=== PATIENT | male | born 1965 | race Caucasian/White ===

== ENCOUNTER 2018-08-22 15:18 | Emergency (ER) | payer SELFPAY ==
[2018-08-22 15:42] VITALS: BP 140/95; PULSE 99; RESP 24; TEMP 37.9; O2SAT 97; BMI 29.1
--- NOTE | 2018-08-22 16:39 | ED.NAVMDI ---
HPI - Nausea/Vomiting/Diarrhea General Chief complaint: Nausea/Vomiting/Diarrhea Stated complaint: vomiting and nausea past several days Time Seen by Provider: 08/22/18 16:24 Source: patient and family Mode of arrival: wheelchair Limitations: no limitations History of Present Illness HPI Narrative: Patient is a 52-year-old male with new diagnosis of metastatic melanoma. He is scheduled with [facility] to start treatment in his 3 days. he has been persistently vomiting and nauseated for the last 3 days. However he states he has been nauseated for weeks. He has Zofran and Compazine at home neither of which he says is working. At a different hospital he received Reglan IV which also did not help. He has significant decreased oral intake. He does live alone his sister is currently here to help him however she does not live with him constantly. Patient has no abdominal pain. Related Data Previous Rx's Medication Instructions Recorded promethazine 25 mg PO Q6H PRN #20 tab 08/22/18 Allergies Allergy/AdvReac Type Severity Reaction Status Date / Time No Known Drug Allergies Allergy Verified 08/22/18 15:46 Review of Systems Review of Systems ROS Unobtainable: All systems reviewed & are unremarkable except as noted in HPI and below Constitutional Denies chills, Denies fever(s), Denies lethargy and Denies weakness Eyes Denies change in vision, Denies eye discharge, Denies irritation and Denies loss of vision Cardiovascular Denies dyspnea and Denies dyspnea on exertion Respiratory Denies cough, Denies dyspnea, Denies dyspnea on exertion and Denies wheezing Gastrointestinal Gastrointestinal: Denies diarrhea, Reports nausea and Reports vomiting Genitourinary Denies hematuria, Denies flank pain, Denies urinary incontinence and Denies urinary urgency Musculoskeletal Denies back pain, Denies muscle weakness, Denies numbness and Denies tingling Integumentary/Breasts Denies pruritus, Denies erythema, Denies rash and Denies wounds Neurologic Denies loss of vision, Denies numbness, Denies tingling and Denies weakness Allergic/Immunologic Denies wheezing PFSH Medical History Metastatic melanoma (Acute) Social History Smoking Status: Never smoker Social History Smoking Status: Never smoker Exam Initial Vital Signs Initial Vital Signs: Vital Signs Temperature 100.2 F H 08/22/18 15:42 Pulse Rate 99 H 08/22/18 15:42 Respiratory Rate 24 08/22/18 15:42 Blood Pressure 140/95 H 08/22/18 15:42 Pulse Oximetry 97 08/22/18 15:42 GENERAL: weak male no acute distress HEENT: Head atraumatic,EOMI, pupils reactive, face symmetric, dry mucous membranes CARDIOVASCULAR: Regular rate and rhythm without murmurs, rubs or gallops. RESPIRATORY: Breath sounds equal bilaterally, no wheezes rales or rhonchi. ABDOMEN: Soft, nontender. Normoactive bowel sounds all 4 quadrants. No guarding or rebound. EXTREMITIES: Normal range of motion, no clubbing or edema. Neurovascularly intact. congenital skeletal abnormalities of hands stable NEUROLOGICAL: Alert and oriented x4. SKIN: a melanoma lesion noted on on right neck. Minimal drainage. No surrounding erythema. Course Orders Ordered: Discontinued Medications Diphenhydramine HCl (Benadryl) 25 mg IV NOW ONE Stop: 08/22/18 18:18 Last Admin: 08/22/18 18:30 Dose: 25 mg Hydroxyzine HCl (Vistaril) 50 mg IM NOW ONE Stop: 08/22/18 16:41 Last Admin: 08/22/18 16:51 Dose: 50 mg Sodium Chloride (Normal Saline 0.9%) 1,000 mls @ 1,000 mls/hr IV BOLUS ONE Stop: 08/22/18 17:38 Last Infusion: 08/22/18 17:57 Dose: 0 mls/hr Admin: 08/22/18 16:51 Dose: 1,000 mls/hr Sodium Chloride (Normal Saline 0.9%) 1,000 mls @ 1,000 mls/hr IV BOLUS ONE Stop: 08/22/18 19:16 Last Admin: 08/22/18 18:30 Dose: 1,000 mls/hr Metoclopramide HCl (Reglan) 10 mg IV NOW ONE Stop: 08/22/18 18:18 Last Admin: 08/22/18 18:30 Dose: 10 mg Ondansetron HCl (Zofran) 4 mg IV NOW ONE Stop: 08/22/18 16:40 Last Admin: 08/22/18 16:51 Dose: 4 mg Pantoprazole Sodium (Protonix) 40 mg IV NOW ONE Stop: 08/22/18 19:04 Last Admin: 08/22/18 19:14 Dose: 40 mg Vital Signs - 8 hr 08/22/18 15:42 08/22/18 18:59 Temperature 100.2 F H Pulse Rate 99 H 86 Respiratory Rate 24 14 Blood Pressure 140/95 H Blood Pressure [Right Arm] 125/71 Pulse Oximetry 97 98 MDM - Nausea/Vomiting/Diarrhea Lab Data Attestation: I reviewed the patient's lab results. Result diagrams: 08/22/18 16:50 08/22/18 16:50 Lab Results 08/22/18 08/22/18 Range/Units 16:50 16:50 WBC 4.9 (4.5-11.0) X10^3/uL RBC 4.97 (4.5-5.9) X10^6/uL Hgb 14.5 (13.5-17.5) g/dL Hct 43.1 (41-53) % MCV 86.8 (80-100) fL MCH 29.2 (26-34) PG MCHC 33.7 (30-36) % RDW 13.5 (11.6-14.8) % Plt Count 163 (150-400) X10^3/uL Neut % (Auto) 83.1 H (50-75) % Lymph % (Auto) 5.7 L (25-40) % Harding % (Auto) 10.4 (3-14) % Eos % (Auto) 0.2 L (2-4) % Baso % (Auto) 0.6 (0-2) % Neut # (Auto) 4100 (8150-5297) /uL Lymph # (Auto) 300 L (1245-8139) /uL Harding # (Auto) 500 (0-900) /uL Eos # (Auto) 0 (0-450) /uL Baso # (Auto) 0 (0-100) /uL Sodium 137 (137-145) mmol/L Potassium 4.1 (3.4-5.1) mmol/L Chloride 98 (98-107) mmol/L Carbon Dioxide 28 (22-32) mmol/L BUN 13 (9-20) mg/dL Creatinine 0.50 L (0.66-1.25) mg/dL Estimated GFR > 60.0 (>60) mL/min BUN/Creatinine Ratio 26.0 H (6-22) Glucose 92 (70-100) mg/dL Calcium 9.1 (8.4-10.2) mg/dL Total Bilirubin 1.4 H (0.2-1.3) mg/dL AST 255 H (17-59) IU/L ALT 573 H (21-72) IU/L Alkaline Phosphatase 254 H (38-126) U/L Total Protein 7.0 (6.3-8.2) g/dL Albumin 4.2 (3.5-5.0) g/dL Globulin 2.8 (1.7-4.1) g/dL Albumin/Globulin Ratio 1.5 (1.0-2.8) Lipase 26 (23-300) U/L Imaging Data CT scan - abdomen: Radiologist's impression: PROCEDURE: CT ABDOMEN PELVIS W CON INDICATIONS: metastatic melanoma, persistent vomiting TECHNIQUE: After the administration of intravenous contrast, 5 mm thick sections acquired from the diaphragm to the symphysis. 5 mm coronal and sagittal reformats were acquired. For radiation dose reduction, the following was used: automated exposure control, adjustment of mA and/or kV according to patient size. COMPARISON: None. FINDINGS: Image quality: Excellent. ABDOMEN: Lung bases: There are approximately seven right-sided pulmonary nodules predominantly within the visualized portions of the right middle and lower lobe seen on series 4 images one through 6. The largest measures 4 mm. Approximately four similar appearing nodules are present within the left lower lobe, the largest measuring 7 mm. No priors are available for comparison. Solid organs: Liver is enlarged and demonstrates innumerable areas of infiltrative hypoattenuation both patchy and confluent. The largest is identified within the mid right hepatic lobe on series 3 image 20 measuring 21 mm AP by 17 mm transverse. In addition, multifocal areas of heterogeneous low attenuation are present within the spleen, the largest measuring 9 mm AP by 9 mm transverse. Gallbladder is unremarkable. Biliary system is non dilated. Pancreas enhances normally. No adrenal nodules. Kidneys demonstrate normal size and enhancement, without hydronephrosis. Right renal low attenuation focus is present measuring 18 mm. Peritoneum and bowel: Bowel loops demonstrate normal wall thickness and caliber. No free fluid or air. Nodes and vessels: No retroperitoneal or mesenteric adenopathy by size criteria. Aorta and inferior vena cava are normal in size. Miscellaneous: No ventral hernias. PELVIS: Genitourinary: Bladder wall thickness is normal. Miscellaneous: No inguinal hernias or adenopathy. Bones: No suspicious bony lesions. No vertebral body compression fractures. Postsurgical changes within the femoral heads bilaterally are present. IMPRESSION: 1. Bilateral subcentimeter multiple pulmonary nodules as above, the largest measuring 7 mm. Given history of melanoma, metastatic disease is suspected. No priors are available for comparison. 2.Innumerable hypoattenuating lesions within the liver and spleen as above. Again, given history of melanoma, overall appearance is most suggestive of metastatic disease. No priors are available for comparison. Dictated by: Nini Lopez M.D. on 08/22/2018 at 18:20 CT scan - head: Radiologist's impression: PROCEDURE: CT HEAD/BRAIN WO CON INDICATIONS: melanoma, persistent vomiting TECHNIQUE: Noncontrast 4.5 mm thick angled axial sections acquired from the foramen magnum to the vertex, with coronal and sagittal reformats. For radiation dose reduction, the following was used: automated exposure control, adjustment of mA and/or kV according to patient size. COMPARISON: None. FINDINGS: Image quality: Excellent. CSF spaces: Basal cisterns are patent. No extra-axial fluid collections. Ventricles are normal in size and shape. Brain: No midline shift. No intracranial masses or hemorrhage. Acsh-white matter interface is normal. Skull and face: Calvarium and visualized facial bones are intact, without suspicious lesions. Sinuses: Visualized sinuses and mastoids are clear. IMPRESSION: 1. No acute intracranial process. Dictated by: Nini Lopez M.D. on 08/22/2018 at 18:19 [facility] Narrative Medical decision making narrative: Patient vomited 1 time in the waiting room no further vomiting. He is persistently nauseated. Blood work is reassuring no sign of significant dehydration or electrolyte abnormality. Zofran and IM Vistaril did not help. Decision for head CT to look for metastatic disease and abdominal CT. Abdominal CT did show some pulmonary nodules concerning for metastatic disease. Unlikely to be causing his persistent nausea. Patient states he is feeling slightly better but still feeling nauseated. hE is willing to try some ice chips. At this time the not meet admission criteria. He needs to follow up with [facility] in 3 days To start treatment. Discharge Plan Departure Patient Disposition: Home Clinical Impression: Malignant melanoma, metastatic, Nausea Discharge Date/Time: 08/22/18 19:52 Interventions: ED Discharge Assessment Last Done: 08/22/18 19:52 Instructions: DI for Dehydration -- Adult, DI for Nausea -- Adult Activity Restrictions/Additional Instructions: 1) You have been diagnosed with Nausea, metastatic melanoma - CT of abdomen did show concerning spots in lungs as well. 2) What to do: Drink frequent but small amounts of fluids. I recommend Gatorade or a Gatorade-like product, as it has small amounts of sugar and salts that improve fluid retention. 3) Take medications as directed - Phenergan 25 mg every 6 hr if needed for nausea vomiting 4) Follow up with your primary care provider in 2-3 days, see [facility] on Thursday as previously arranged 5) Return to ER if you should have any new or worsening symptoms such as, unable to hold down fluids despite use of anti-nausea medications and the small volume oral rehydration strategy. Prescriptions: New promethazine 25 mg tablet 25 mg PO Q6H PRN (Reason: nausea and vomiting) Qty: 20 RF: 0
[2018-08-22] MEDS: hydrOXYzine 50 MG/ML INJ IM (16:51)
[2018-08-22] MEDS: SODIUM CHLORIDE 0.9% 1,000 ML 1000 ML IV ×2 (16:51→18:30)
[2018-08-22] MEDS: ONDANSETRON 4 MG/2 ML INJ IV (16:51)
[2018-08-22 17:02] LABS: Add Manual Diff / Slide Review NO; Basophils Absolute Auto 0 /uL (0-100); Basophils Percent Auto 0.6 % (0-2); Eosinophils Absolute Auto 0 /uL (0-450); Eosinophils Percent Auto 0.2 % (2-4); Hematocrit 43.1 % (41-53); Hemoglobin 14.5 g/dL (13.5-17.5); Lymphocytes Absolute Auto 300 /uL (1100-4500); Lymphocytes Percent Auto 5.7 % (25-40); Mean Corpuscular HGB Conc 33.7 % (30-36); Mean Corpuscular Hemoglobin 29.2 PG (26-34); Mean Corpuscular Volume 86.8 fL (80-100); Monocytes Absolute Auto 500 /uL (0-900); Monocytes Percent Auto 10.4 % (3-14); Neutrophils Absolute Auto 4100 /uL (1500-7000); Neutrophils Percent Auto 83.1 % (50-75); Platelet Count 163 X10^3/uL (150-400); Red Blood Cell Count 4.97 X10^6/uL (4.5-5.9); Red Cell Distribution Width 13.5 % (11.6-14.8); White Blood Cell Count 4.9 X10^3/uL (4.5-11.0)
[2018-08-22 17:13] LABS: Alanine Aminotransferase 573 IU/L (21-72); Albumin 4.2 g/dL (3.5-5.0); Albumin Globulin Ratio 1.5 (1.0-2.8); Alkaline Phosphatase 254 U/L (38-126); Aspartate Aminotransferase 255 IU/L (17-59); Bilirubin Total 1.4 mg/dL (0.2-1.3); Blood Urea Nitrogen 13 mg/dL (9-20); Calcium 9.1 mg/dL (8.4-10.2); Carbon Dioxide 28 mmol/L (22-32); Chloride 98 mmol/L (98-107); Estimated Glomerular Filt Rate > 60.0 mL/min (>60); Globulin 2.8 g/dL (1.7-4.1); Glucose 92 mg/dL (70-100); HEMOLYSIS 17 (0-50); Lipase 26 U/L (23-300); Potassium 4.1 mmol/L (3.4-5.1); Sodium 137 mmol/L (137-145)
--- NOTE | 2018-08-22 17:28 | DI.CT.S_ITS ---
PROCEDURE: CT HEAD/BRAIN WO CON INDICATIONS: melanoma, persistent vomiting TECHNIQUE: Noncontrast 4.5 mm thick angled axial sections acquired from the foramen magnum to the vertex, with coronal and sagittal reformats. For radiation dose reduction, the following was used: automated exposure control, adjustment of mA and/or kV according to patient size. COMPARISON: None. FINDINGS: Image quality: Excellent. CSF spaces: Basal cisterns are patent. No extra-axial fluid collections. Ventricles are normal in size and shape. Brain: No midline shift. No intracranial masses or hemorrhage. Cash-white matter interface is normal. Skull and face: Calvarium and visualized facial bones are intact, without suspicious lesions. Sinuses: Visualized sinuses and mastoids are clear. IMPRESSION: 1. No acute intracranial process. Dictated by: Nini Lopez M.D. on 08/22/2018 at 18:19 Approved by: Nini Lopez M.D. on 08/22/2018 at 18:20
--- NOTE | 2018-08-22 17:28 | DI.CT.S_ITS ---
PROCEDURE: CT ABDOMEN PELVIS W CON INDICATIONS: metastatic melanoma, persistent vomiting TECHNIQUE: After the administration of intravenous contrast, 5 mm thick sections acquired from the diaphragm to the symphysis. 5 mm coronal and sagittal reformats were acquired. For radiation dose reduction, the following was used: automated exposure control, adjustment of mA and/or kV according to patient size. COMPARISON: None. FINDINGS: Image quality: Excellent. ABDOMEN: Lung bases: There are approximately seven right-sided pulmonary nodules predominantly within the visualized portions of the right middle and lower lobe seen on series 4 images one through 6. The largest measures 4 mm. Approximately four similar appearing nodules are present within the left lower lobe, the largest measuring 7 mm. No priors are available for comparison. Solid organs: Liver is enlarged and demonstrates innumerable areas of infiltrative hypoattenuation both patchy and confluent. The largest is identified within the mid right hepatic lobe on series 3 image 20 measuring 21 mm AP by 17 mm transverse. In addition, multifocal areas of heterogeneous low attenuation are present within the spleen, the largest measuring 9 mm AP by 9 mm transverse. Gallbladder is unremarkable. Biliary system is non dilated. Pancreas enhances normally. No adrenal nodules. Kidneys demonstrate normal size and enhancement, without hydronephrosis. Right renal low attenuation focus is present measuring 18 mm. Peritoneum and bowel: Bowel loops demonstrate normal wall thickness and caliber. No free fluid or air. Nodes and vessels: No retroperitoneal or mesenteric adenopathy by size criteria. Aorta and inferior vena cava are normal in size. Miscellaneous: No ventral hernias. PELVIS: Genitourinary: Bladder wall thickness is normal. Miscellaneous: No inguinal hernias or adenopathy. Bones: No suspicious bony lesions. No vertebral body compression fractures. Postsurgical changes within the femoral heads bilaterally are present. IMPRESSION: 1. Bilateral subcentimeter multiple pulmonary nodules as above, the largest measuring 7 mm. Given history of melanoma, metastatic disease is suspected. No priors are available for comparison. 2.Innumerable hypoattenuating lesions within the liver and spleen as above. Again, given history of melanoma, overall appearance is most suggestive of metastatic disease. No priors are available for comparison. Dictated by: Nini Lopez M.D. on 08/22/2018 at 18:20 Approved by: Nini Lopez M.D. on 08/22/2018 at 18:26
[2018-08-22] MEDS: diphenhydrAMINE 50 MG/ML VIAL 25 MG IV (18:30)
[2018-08-22] MEDS: METOCLOPRAMIDE 10 MG/2 ML INJ IV (18:30)
[2018-08-22 18:59] VITALS: BP 125/71; PULSE 86; RESP 14; O2SAT 98
[2018-08-22] MEDS: PANTOPRAZOLE 40 MG VIAL IV (19:14)
[2018-08-22 19:52] VITALS: BP 126/79; PULSE 81; RESP 14; O2SAT 99
== END 2018-08-22 19:52 | disposition home or self-care (01) ==
PROVIDERS: Emergency Provider Emergency Medicine
DX: C79.9 Secondary malignant neoplasm of unspecified site (principal); R11.0 Nausea
CPT/HCPCS: 36591; 70450; 74177; 80053; 83690; 85025; 96361; 96372; 96374; 96375; 99283; 99285; C9113; J1200; J2405; J2765; J3410; Q9967

== ENCOUNTER → 2018-10-21 10:28 | Outpatient (CLI) | payer SELFPAY ==
[2018-10-21 11:15] LABS: Add Manual Diff / Slide Review NO; Basophils Absolute Auto 100 /uL (0-100); Basophils Percent Auto 1.4 % (0-2); Eosinophils Absolute Auto 200 /uL (0-450); Eosinophils Percent Auto 5.3 % (2-4); Hematocrit 41.1 % (41-53); Hemoglobin 14.2 g/dL (13.5-17.5); Lymphocytes Absolute Auto 900 /uL (1100-4500); Mean Corpuscular HGB Conc 34.7 % (30-36); Mean Corpuscular Hemoglobin 29.4 PG (26-34); Mean Corpuscular Volume 84.7 fL (80-100); Monocytes Absolute Auto 300 /uL (0-900); Monocytes Percent Auto 7.9 % (3-14); Neutrophils Absolute Auto 2800 /uL (1500-7000); Neutrophils Percent Auto 65.4 % (50-75); Platelet Count 185 X10^3/uL (150-400); Red Blood Cell Count 4.85 X10^6/uL (4.5-5.9); Red Cell Distribution Width 13.7 % (11.6-14.8); White Blood Cell Count 4.4 X10^3/uL (4.5-11.0)
[2018-10-21 11:25] LABS: Alanine Aminotransferase 32 IU/L (21-72); Albumin 4.5 g/dL (3.5-5.0); Albumin Globulin Ratio 1.7 (1.0-2.8); Alkaline Phosphatase 85 U/L (38-126); Aspartate Aminotransferase 25 IU/L (17-59); BUN Creatinine Ratio 25.7 (6-22); Bilirubin Total 0.6 mg/dL (0.2-1.3); Bilirubin Unconjugated 0.5 mg/dL (0.0-1.1); Blood Urea Nitrogen 18 mg/dL (9-20); Calcium 9.1 mg/dL (8.4-10.2); Carbon Dioxide 26 mmol/L (22-32); Chloride 103 mmol/L (98-107); Estimated Glomerular Filt Rate > 60.0 mL/min (>60); Globulin 2.7 g/dL (1.7-4.1); Glucose 90 mg/dL (70-100); HEMOLYSIS < 15 (0-50); Lactate Dehydrogenase 533 U/L (313-618); Potassium 3.7 mmol/L (3.4-5.1); Sodium 139 mmol/L (137-145); Total Protein 7.2 g/dL (6.3-8.2)
== END ==
DX: C43.9 Malignant melanoma of skin, unspecified (principal); C78.7 Secondary malignant neoplasm of liver and intrahepatic bile duct
CPT/HCPCS: 36415; 80048; 80076; 83615; 85025

== ENCOUNTER → 2021-02-28 12:01 | Outpatient (CLI) | payer MEDICARE, SELFPAY ==
[2021-02-28] MEDS: COVID-19 VACC #1, MRNA(MOD) 100 MCG/0.5 ML VIAL IM (12:01)
== END ==
PROVIDERS: Referring Provider Internal Medicine; Visit Provider Internal Medicine
DX: Z23 Encounter for immunization (principal)
CPT/HCPCS: 0011A; 91301

== ENCOUNTER → 2021-03-28 12:18 | Outpatient (CLI) | payer MEDICARE, SELFPAY ==
[2021-03-28] MEDS: COVID-19 VACC #2, MRNA(MOD) 100 MCG/0.5 ML VIAL IM (12:00)
== END ==
PROVIDERS: Visit Provider Internal Medicine
DX: Z23 Encounter for immunization (principal)
CPT/HCPCS: 0012A; 91301